=== PATIENT | female | born 1930 | race Caucasian/White ===

== ENCOUNTER 2017-02-03 18:34 | Observation (INO) | payer BC ==
[~2017-02-03] VITALS: Ht 147.3 cm; Wt 54.6 kg
[~2017-02-03 18:34] MED LIST: ASCORBIC ACID250 MG PO; ASPIRIN81 M2 PO; Ascorbic Acid,Ester- PO; CITALOPRAM HBR10 MG PO; CRANBERRY300 MG PO; CYANOCOBALAM1000 MCG PO; Colace PO; Cranberry PO; Ecotrin PO; Folvite PO; K-Dur PO; LEVOTHYROXINE25 MCG PO; Levothroid,Synthroid PO; METAMUCIL CAPSU1 CAP PO; MURO-128 5300 DROP/1 BOTH EYES; Metamucil Capsule PO; Muro-128 5% Ophth So BOTH EYES; PEPCID PO; PERCOCET 5/31 TABLET PO; Senokot S,Pericolace PO; TUMS300 MG PO; TYLENOL REGULA325 MG PO; Theragran PO; Tums,OsCal PO; VITAMIN D2000 INTUN PO; VITRUM SENIOR1 EAC2 PO; VOLTAREN 1% GE100 GM TP; Vitamin D PO; ZETIA10 MG PO; ZIAC 10/6.251 TABLET PO; ZIAC 5/6.251 TABLET PO; Zetia PO; Ziac 10/6.25 PO; Ziac 5/6.25 PO; celeXA PO
[2017-02-03 19:04] LABS: HEMATOCRIT 38.8 % (36.0-46.0); MCH 25.8 PG (29.0-34.0); MCHC 31.7 G/DL (30.0-36.0); MCV 81.5 FL (83-99); MEAN PLAT.VOLUME 10.7 uM^3 (9.5-12.4); PLATELET COUNT 212 K/uL (156-360); RBC DIS.WIDTH-CV 14.2 % (11.8-14.6); RBC DIS.WIDTH-SD 41.4 % (39-53); RED BLOOD COUNT 4.76 M/uL (3.80-5.20)
[2017-02-03 19:17] LABS: CHLORIDE 101 mEq/L (99-109); POTASSIUM 4.3 mEq/L (3.7-5.4); SODIUM 138 mEq/L (136-147)
[2017-02-03 19:18] LABS: GLUCOSE 109 mg/dL (70-99)
[2017-02-03 19:20] LABS: ANION GAP 11 MEQ/L (2-14)
[2017-02-03 19:22] LABS: GFR ESTIMATE (CALCULATED) 56 mL/min/
[2017-02-03 19:23] LABS: UREA NITROGEN (BUN) 37 mg/dL (9-23)
[2017-02-03 19:25] LABS: TROP-I INTERPRETATION NEGATIVE; TROPONIN-I < 0.01 ng/mL (0.0-0.30)
[2017-02-03 19:32] LABS: INTER. NORMALIZED RATIO 1.1; PROTHROMBIN TIME 10.8 (9.2-11.2); PTT 26.6 (25-32)
[2017-02-03] MEDS ORDERED: LEVO-T25 MCG PO (20:07)
[2017-02-03] MEDS ORDERED: ZIAC 5/6.251 TABLET PO (20:41)
[2017-02-03] MEDS ORDERED: MURO-128 5300 DROP/1 BOTH EYES (20:42)
[2017-02-03] MEDS ORDERED: LO-DOSE ASPIRIN81 M2 PO (20:42)
[2017-02-03] MEDS ORDERED: METAMUCIL0.4 GM PO (20:43)
[2017-02-03] MEDS ORDERED: CYANOCOBALAM1000 MCG PO (20:44)
[2017-02-03] MEDS ORDERED: VITAMIN D2000 UNI1 PO (20:44)
[2017-02-03] MEDS ORDERED: MULTI-VITAMIN1 EAC3 PO ×2 (20:45→20:48)
[2017-02-03] MEDS ORDERED: CRANBERRY 4001 EAC1 PO (20:48)
[2017-02-03] MEDS ORDERED: TUMS X-STR300 MG PO (20:49)
[2017-02-03] MEDS ORDERED: MURO-128 OPHTH3.5 GM BOTH EYES (20:50)
[2017-02-03] MEDS ORDERED: SALINE NASAL SP45 ML BOTH NARES (20:50)
[2017-02-03] MEDS ORDERED: PEPCID COMPLET1 EACH PO (20:51)
[2017-02-03] MEDS ORDERED: RECLAST5 MG/100 M IV (20:52)
[2017-02-03] MEDS ORDERED: ACETAMINOPHEN325 M3 PO (20:52)
[2017-02-03 22:13] LABS: Estimated Average Glucose 120 mg/dL (70-123); HEMOGLOBIN A1c (GLYCOHEMOGLOB) 5.8 % HGB (Below 5.7)
[2017-02-03 22:26] LABS: HDL CHOLESTEROL 35 MG/DL (Desirable>=50); LDL CHOLESTEROL 76 mg/dL (Desirable<100); NON-HDL CHOLESTEROL 105 mg/dL (Desirable<160); TOTAL CHOLESTEROL 140 mg/dL (Desirable<200); TRIGLYCERIDES 143 MG/DL (Normal: <150)
[2017-02-03 22:29] VITALS: BP 153/70
[2017-02-03 22:36] VITALS: BP 153/70
[2017-02-04 00:08] VITALS: BP 151/91
[2017-02-04 04:00] VITALS: BP 156/70
[2017-02-04 07:33] VITALS: BP 159/70
[2017-02-04 11:30] VITALS: BP 142/67
[2017-02-04 12:18] LABS: CHLORIDE 101 mEq/L (99-109); POTASSIUM 3.8 mEq/L (3.7-5.4); SODIUM 140 mEq/L (136-147)
[2017-02-04 12:21] LABS: GLUCOSE 161 mg/dL (70-99)
[2017-02-04 12:22] LABS: ANION GAP 12 MEQ/L (2-14)
[2017-02-04 12:23] LABS: TOTAL BILIRUBIN 0.7 mg/dL (0.0-1.0)
[2017-02-04 12:24] LABS: ALKALINE PHOSPHATASE 71 IU/L (3-129); GFR ESTIMATE (CALCULATED) 56 mL/min/
[2017-02-04 12:25] LABS: UREA NITROGEN (BUN) 25 mg/dL (9-23)
[2017-02-04 15:28] VITALS: BP 146/68
[2017-02-04 19:00] VITALS: BP 155/66
== END 2017-02-04 23:00 | disposition home or self-care (01) ==
LOC: EME 18:34 → EDOF 21:24 → 5WEST 21:24 → EDOF 21:24 → 5WEST 22:25
PROVIDERS: Emergency Medicine; Hospitalist; Internal Medicine
DX: G45.9 Transient cerebral ischemic attack, unspecified (principal); H53.9 Unspecified visual disturbance; I10 Essential (primary) hypertension; E03.9 Hypothyroidism, unspecified; E78.5 Hyperlipidemia, unspecified; G43.909 Migraine, unspecified, not intractable, without status migrainosus; K21.9 Gastro-esophageal reflux disease without esophagitis
CPT/HCPCS: 70450; 70551; 71020; 80048; 80053; 80061; 83036; 84484; 85027; 85610; 85730; 93005; 93880; 99281; 99285; G0378; J1644